=== PATIENT | male | born 1985 | race Caucasian/White ===

== ENCOUNTER 2019-08-16 01:43 | Outpatient (CLI) | payer OTHER, SELFPAY ==
[2019-08-16 10:31] LABS: BUN 15 mg/dL (7-18); CREATININE 0.97 mg/dL (0.70-1.30); Calcium 9.3 mg/dL (8.5-10.1); Calculated LDL 139 mg/dL; Chloride 103 mmol/L (98-107); Cholesterol 194 mg/dL (<200); Glucose 103 mg/dL (74-106); HDL Cholesterol 41 mg/dL (40-60); Potassium 4.2 mmol/L (3.5-5.1); Sodium 141 mmol/L (136-145); Triglyceride 74 mg/dL (<150)
== END 2019-08-16 02:03 ==
PROVIDERS: PCP Nurse Practitioner Family; Visit Provider Nurse Practitioner Family
DX: Z13.220 Encounter for screening for lipoid disorders (principal); Z13.1 Encounter for screening for diabetes mellitus
CPT/HCPCS: 36415; 80048; 80061

== ENCOUNTER 2020-03-28 07:31 | Outpatient (CLI) | payer OTHER, SELFPAY ==
[2020-03-31 07:53] LABS: SARS-CoV-2 RNA Undetected (Undetected); SARS-CoV-2 Specimen Source Nasopharynx
== END 2020-03-28 07:51 ==
PROVIDERS: PCP Nurse Practitioner Adult Health; Visit Provider Nurse Practitioner Adult Health
DX: Z11.59 Encounter for screening for other viral diseases (principal); Z71.84 Encounter for health counseling related to travel
CPT/HCPCS: U0003

== ENCOUNTER 2020-04-18 08:19 | Outpatient (CLI) | payer OTHER, SELFPAY ==
[2020-04-20 14:13] LABS: SARS-CoV-2 RNA Undetected (Undetected); SARS-CoV-2 Specimen Source Nasopharynx
== END 2020-04-18 08:39 ==
PROVIDERS: PCP Nurse Practitioner Adult Health; Visit Provider Nurse Practitioner Adult Health
DX: Z11.59 Encounter for screening for other viral diseases (principal)
CPT/HCPCS: U0003

== ENCOUNTER 2020-09-06 11:04 | Outpatient (REF) | payer OTHER, SELFPAY ==
[2020-09-08 13:35] LABS: Helicobacter pylori Ag, Feces Negative (Negative)
== END 2020-09-06 11:24 ==
LOC: LBN 11:04
PROVIDERS: PCP Nurse Practitioner Adult Health; Visit Provider Nurse Practitioner Adult Health
DX: R10.13 Epigastric pain (principal)
CPT/HCPCS: 87338

== ENCOUNTER 2020-12-22 03:20 | Outpatient (CLI) | payer OTHER, SELFPAY ==
[2020-12-26 16:18] LABS: Avocado, IgE <0.35 kU/L; Codfish IgE <0.35 kU/L; Halibut IgE <0.35 kU/L; Mackerel IgE <0.35 kU/L; Salmon IgE <0.35 kU/L; Trout IgE <0.35 kU/L; Tuna IgE <0.35 kU/L
[2020-12-28 17:06] LABS: CLASS 0; Perch Ocean IgE <0.35 kU/L (<0.35)
== END 2020-12-22 03:21 | disposition home or self-care (01) ==
LOC: LBO 03:21
PROVIDERS: PCP Nurse Practitioner Adult Health; Visit Provider Physician Assistant
DX: T78.3XXA Angioneurotic edema, initial encounter (principal); Z91.018 Allergy to other foods
CPT/HCPCS: 36415; 86003

== ENCOUNTER 2021-01-19 01:54 | Outpatient (CLI) | payer OTHER, SELFPAY ==
[2021-01-20 14:02] LABS: COVID-19 RT-PCR UVMMC Result Negative (Negative)
== END 2021-01-19 01:55 | disposition home or self-care (01) ==
PROVIDERS: PCP Nurse Practitioner Adult Health; Visit Provider Nurse Practitioner Adult Health
DX: Z20.822 Contact with and (suspected) exposure to COVID-19 (principal)
CPT/HCPCS: U0003